=== PATIENT | male | born 2000 | race Two or more races ===

== ENCOUNTER 2024-04-04 20:24 | Emergency (ER) | payer OTHER ==
[~2024-04-04] VITALS: Ht 185.4 cm; Wt 93.9 kg
[2024-04-04] MEDS ORDERED: ACETAMINOPHEN 500 MG GEL..CAP PO ONE (21:19)
[2024-04-04] MEDS ORDERED: METOCLOPRAMIDE HCL 5 MG/ML VIAL IM ONE (21:30)
[2024-04-04] MEDS ORDERED: METOCLOPRAMIDE HCL 5 MG/ML VIAL ONE (21:42)
[2024-04-04 21:44] LABS: HEMOGLOBIN 14.4 g/dL (13-16.00); MEAN CELL VOLUME 84.6 fL (80.0-100.00); MEAN CORPUSCULAR HEMOGLOBIN 29.1 pg (27.00-32.0); MEAN CORPUSCULAR HGB CONC 34.4 g/dl (32.0-36.0); PLATELET COUNT 168 K/uL (150-450); RED BLOOD COUNT 4.97 M/uL (4.00-6.00); RED CELL DISTRIBUTION WIDTH 13.4 % (11.5-14.5)
[2024-04-04 22:25] LABS: AMYLASE 49 U/L (25-115); LIPASE 24 U/L (13-75)
[2024-04-04] MEDS ORDERED: 0.9 % SODIUM CHLORIDE 1,000 ML IV ONE (22:30)
[2024-04-04 22:31] LABS: ALBUMIN 4.2 gm/dL (3.4-5.0); BILIRUBIN TOTAL 0.26 mg/dL (0.3-1.2); CALCIUM 9.1 mg/dL (8.5-10.1); CREATININE SERUM 1.03 mg/dL (0.70-1.30); GFR 90.3; GLOBULINA 4.3 G/DL (2.4-3.5); POTASSIUM 4.22 mEq/L (3.5-5.1); TOTAL PROTEIN 8.5 gm/dL (6.4-8.2)
[2024-04-04] MEDS ORDERED: METHYLPREDNISOLONE SOD SUCC 125 MG VIAL IV ONE (22:45)
[2024-04-04] MEDS ORDERED: METHYLPREDNISOLONE SOD SUCC 125 MG VIAL ONE (22:54)
== END 2024-04-04 23:43 | disposition home or self-care (01) ==
LOC: ER 20:26
PROVIDERS: General Practice
DX: J10.1 Influenza due to other identified influenza virus with other respiratory manifestations (principal); Z20.822 Contact with and (suspected) exposure to COVID-19

== ENCOUNTER 2024-05-15 12:54 | Emergency (ER) | payer OTHER ==
[~2024-05-15] VITALS: Ht 185.4 cm; Wt 90.7 kg
[2024-05-15] MEDS ORDERED: ACETAMINOPHEN 500 MG GEL..CAP PO ONE ×2 (16:00→16:09)
[2024-05-15 16:12] LABS: HEMATOCRIT 42.9 % (39.0-48.0); HEMOGLOBIN 14.5 g/dL (13-16.00); MEAN CELL VOLUME 86.3 fL (80.0-100.00); MEAN CORPUSCULAR HEMOGLOBIN 29.3 pg (27.00-32.0); MEAN CORPUSCULAR HGB CONC 33.9 g/dl (32.0-36.0); PLATELET COUNT 171 K/uL (150-450); RED BLOOD COUNT 4.97 M/uL (4.00-6.00); RED CELL DISTRIBUTION WIDTH 13.6 % (11.5-14.5)
[2024-05-15 16:35] LABS: CALCIUM 10.1 mg/dL (8.5-10.1); CREATININE SERUM 0.92 mg/dL (0.70-1.30); GFR 101.95; POTASSIUM 4.65 mEq/L (3.5-5.1)
== END 2024-05-15 18:42 | disposition home or self-care (01) ==
LOC: ER 12:55
PROVIDERS: Nurse Practitioner Family
DX: R51.9 Headache, unspecified (principal); J32.9 Chronic sinusitis, unspecified; E16.1 Other hypoglycemia; Z20.822 Contact with and (suspected) exposure to COVID-19